=== PATIENT | male | born 1990 | race Caucasian/White ===

== ENCOUNTER 2019-02-10 02:21 | Emergency (ER) | payer OTHER ==
[~2019-02-10] VITALS: Ht 175.3 cm; Wt 56.7 kg
[2019-02-10 02:31] VITALS: Ht 175.3 cm; Wt 56.7 kg
[2019-02-10 04:39] LABS: BASOPHIL % 0.5 % (0-2); PLATELET COUNT 152 x10^3mcL (130-400); RED CELL DISTRIBUTION WIDTH 14.3 % (11.5-14.5)
[2019-02-10 04:58] LABS: BILIRUBIN TOTAL 0.3 mg/dL (0.20-1.00); CALCIUM 7.8 mg/dL (8.5-10.1)
[2019-02-10 04:59] LABS: ALBUMIN 2.7 g/dL (3.4-5.0); TOTAL PROTEIN, SERUM 5.6 g/dL (6.4-8.2)
[2019-02-10 05:01] LABS: CREATININE SERUM 11.5 mg/dL (0.7-1.3)
[2019-02-10 07:16] VITALS: BP 140/84
== END 2019-02-10 07:16 | disposition home or self-care (01) ==
LOC: ED 02:21
PROVIDERS: Emergency Medicine
DX: R07.89 Other chest pain (principal); E87.5 Hyperkalemia; I10 Essential (primary) hypertension; N18.6 End stage renal disease
CPT/HCPCS: 36415; Q0092

== ENCOUNTER 2019-09-10 02:42 | Inpatient (IN) | payer OTHER, MEDICAID, SELFPAY ==
[2019-09-10] VITALS (14 sets, daily range): BP systolic 83–236; BP diastolic 40–139; Ht 172.7 cm; Wt 61.0 kg
[~2019-09-10] VITALS: Ht 172.7 cm; Wt 61.0 kg
[2019-09-10 03:43] LABS: BASOPHIL % 0.4 % (0-2); PLATELET COUNT 192 x10^3mcL (130-400); RED CELL DISTRIBUTION WIDTH 16.5 % (11.5-14.5)
[2019-09-10 04:15] LABS: BILIRUBIN TOTAL 0.36 mg/dL (0.20-1.00); CALCIUM 7.9 mg/dL (8.5-10.1); CARBON DIOXIDE 20.8 mmol/L (21-32); POTASSIUM SERUM 5.4 mmol/L (3.5-5.1); TOTAL PROTEIN, SERUM 7.6 g/dL (6.4-8.2)
[2019-09-10 04:16] LABS: ALBUMIN 3.3 g/dL (3.4-5.0)
[2019-09-10 04:17] LABS: CREATININE SERUM 19.7 mg/dL (0.7-1.3)
[2019-09-10 06:12] LABS: T3 TOTAL 0.72 ng/mL
[2019-09-10 06:21] LABS: FREE T4 1.24 ng/dL (0.76-1.46); FREE THYROXINE INDEX 2.8 ug/dL (1.4-4.5); T4(THYROXINE) 8.5 ug/dL (4.7-13.3)
[2019-09-10 14:31] LABS: PLATELET COUNT 229 x10^3mcL (130-400)
[2019-09-10 14:36] LABS: RED CELL DISTRIBUTION WIDTH 16.6 % (11.5-14.5)
[2019-09-10 14:53] LABS: BAND NEUTROPHIL 0 % (0-10); BASOPHIL 0 % (0-2); SEGMENTED NEUTROPHILS 90 % (37-75); rbc morphology (normal/abnorm) ABNORMAL (NORMAL)
[2019-09-10 15:01] LABS: CALCIUM 7.3 mg/dL (8.5-10.1); CARBON DIOXIDE 21.9 mmol/L (21-32); MAGNESIUM 2.4 mg/dL (1.8-2.4); PHOSPHOROUS 8.8 mg/dL (2.5-4.9)
[2019-09-10 15:14] LABS: POTASSIUM SERUM 6.3 mmol/L (3.5-5.1)
[2019-09-10 15:15] LABS: CREATININE SERUM 20.9 mg/dL (0.7-1.3)
[2019-09-11] VITALS (18 sets, daily range): BP systolic 91–156; BP diastolic 39–111
[2019-09-11 05:17] LABS: BASOPHIL % 0.1 % (0-2); PLATELET COUNT 169 x10^3mcL (130-400)
[2019-09-11 05:20] LABS: RED CELL DISTRIBUTION WIDTH 16.8 % (11.5-14.5)
[2019-09-11 05:40] LABS: BILIRUBIN TOTAL 0.4 mg/dL (0.20-1.00); CALCIUM 7.7 mg/dL (8.5-10.1); CARBON DIOXIDE 23.7 mmol/L (21-32); MAGNESIUM 1.7 mg/dL (1.8-2.4); PHOSPHOROUS 5.9 mg/dL (2.5-4.9); POTASSIUM SERUM 4.5 mmol/L (3.5-5.1); TOTAL PROTEIN, SERUM 6.8 g/dL (6.4-8.2)
[2019-09-11 05:43] LABS: ALBUMIN 3.1 g/dL (3.4-5.0); CREATININE SERUM 14.2 mg/dL (0.7-1.3)
[2019-09-12] VITALS (12 sets, daily range): BP systolic 99–184; BP diastolic 60–104
[2019-09-12 05:40] LABS: BASOPHIL % 0.4 % (0-2); PLATELET COUNT 199 x10^3mcL (130-400)
[2019-09-12 06:05] LABS: CARBON DIOXIDE 27.9 mmol/L (21-32); POTASSIUM SERUM 3.5 mmol/L (3.5-5.1)
[2019-09-13] VITALS (9 sets, daily range): BP systolic 141–212; BP diastolic 71–100
[2019-09-13 06:17] LABS: CALCIUM 8.3 mg/dL (8.5-10.1); CARBON DIOXIDE 31.1 mmol/L (21-32); POTASSIUM SERUM 3.6 mmol/L (3.5-5.1)
[2019-09-13 06:19] LABS: CREATININE SERUM 7.5 mg/dL (0.7-1.3)
[2019-09-13 06:22] LABS: BASOPHIL % 0.2 % (0-2); PLATELET COUNT 201 x10^3mcL (130-400)
[2019-09-13 06:24] LABS: RED CELL DISTRIBUTION WIDTH 16.5 % (11.5-14.5)
[2019-09-14] VITALS (7 sets, daily range): BP systolic 128–183; BP diastolic 71–108
[2019-09-14] MEDS ORDERED: RAYOS5 MG PO (12:13)
[2019-09-14] MEDS ORDERED: PRO PO (12:13)
[2019-09-15 06:07] VITALS: BP 164/102
[2019-09-15 07:14] LABS: CALCIUM 8.1 mg/dL (8.5-10.1); CARBON DIOXIDE 25.8 mmol/L (21-32); POTASSIUM SERUM 3.5 mmol/L (3.5-5.1)
[2019-09-15 07:16] LABS: CREATININE SERUM 12.2 mg/dL (0.7-1.3)
[2019-09-15 07:31] LABS: BASOPHIL % 0.7 % (0-2); PLATELET COUNT 223 x10^3mcL (130-400)
[2019-09-15 07:39] LABS: RED CELL DISTRIBUTION WIDTH 16.3 % (11.5-14.5)
[2019-09-15] MEDS ORDERED: AUG500 PO (08:14)
[2019-09-15] MEDS ORDERED: METOPROLOL TART25 M1 PO (08:23)
[2019-09-15] MEDS ORDERED: PROAIR RES117 MCG/Ac INH (08:23)
[2019-09-15 09:00] VITALS: BP 155/101
[2019-09-15 09:04] VITALS: BP 155/101
[2019-09-15 09:41] VITALS: BP 155/101
== END 2019-09-15 11:15 | disposition home or self-care (01) | DRG 871 ==
LOC: ED 02:42 → IC 05:04 → DU 05:04 → IC 12:03 → DU 09-13 19:27
PROVIDERS: Emergency Medicine; Internal Medicine Nephrology; ADMIT Family Medicine; ATTEND Family Medicine
PROC: 5A1945Z Respiratory Ventilation, 24-96 Consecutive Hours (ICD-10-PCS; principal; 2019-09-10)
PROC: 0BH17EZ Insertion of Endotracheal Airway into Trachea, Via Natural or Artificial Opening (ICD-10-PCS; 2019-09-10)
PROC: 5A1D70Z Performance of Urinary Filtration, Intermittent, Less than 6 Hours Per Day (ICD-10-PCS; 2019-09-11)
PROC: 5A1D70Z Performance of Urinary Filtration, Intermittent, Less than 6 Hours Per Day (ICD-10-PCS; 2019-09-12)
PROC: 5A1D70Z Performance of Urinary Filtration, Intermittent, Less than 6 Hours Per Day (ICD-10-PCS; 2019-09-15)
DX: A41.9 Sepsis, unspecified organism (principal); J18.9 Pneumonia, unspecified organism; N18.6 End stage renal disease; I21.A1 Myocardial infarction type 2; J96.01 Acute respiratory failure with hypoxia; E44.1 Mild protein-calorie malnutrition; I16.1 Hypertensive emergency; T86.11 Kidney transplant rejection; I13.2 Hypertensive heart and chronic kidney disease with heart failure and with stage 5 chronic kidney disease, or end stage renal disease; E87.70 Fluid overload, unspecified; I50.9 Heart failure, unspecified; E87.6 Hypokalemia; D64.9 Anemia, unspecified; Z99.2 Dependence on renal dialysis; Z91.14 Patient's other noncompliance with medication regimen; Z68.20 Body mass index [BMI] 20.0-20.9, adult; Z79.899 Other long term (current) drug therapy; Z91.15 Patient's noncompliance with renal dialysis; Z20.828 Contact with and (suspected) exposure to other viral communicable diseases
CPT/HCPCS: 36600; 83880; 84439; 85378; 87804; 94150; A4628; G0378; J0360; J0456; J0696; J1644; J1940; J2150; J2250; J2405; J2543; J2704; J3010; J3370; J3490; J7030; J7040; J7050; J7507; Q0092; U0003-CS